=== PATIENT | male | born 1955 | race Caucasian/White ===

== ENCOUNTER → 2017-11-02 | Outpatient (CLI) | payer OTHER | LOC: FIMAGING 08:37 | PROVIDERS: ATTEND Radiology Diagnostic Radiology | DX: L97.219 Non-pressure chronic ulcer of right calf with unspecified severity (principal); L97.229 Non-pressure chronic ulcer of left calf with unspecified severity; I87.8 Other specified disorders of veins; Z86.718 Personal history of other venous thrombosis and embolism ==